=== PATIENT | female | born 1990 | race Caucasian/White ===

== ENCOUNTER → 2019-05-15 | Outpatient (CLI) | payer OTHER ==
--- NOTE | 2019-05-16 07:20 | US ---
EXAMINATION TYPE: Transabdominal DATE OF EXAM: 05/15/2019 4:25 PM COMPARISON: NONE CLINICAL HISTORY: Z36 Confirm Dates. ; vaginal spotting x 3 days EXAM PERFORMED: Transabdominal (TA) EXAM MEASUREMENTS: GESTATIONAL AGE / DATING Physician Established: (10 weeks/3 days) EDC: 12/08/2019 Dates by LMP: (10 weeks/3 days) EDC: 12/08/2019 Dates by First Scan: No previous Dates by Current Scan for: (10 weeks/1 day) EDC: 12/10/2019 MATERNAL ANATOMY Uterus: 18.8 x 7.0 x 6.5cm Right Ovary: 4.1 x 3.1 x 2.7cm, right ovarian cyst = 1.9 x 1.9 x 1.6cm Left Ovary: 4.3 x 3.4 x 2.7cm Post CDS / Adnexa: wnl Presence of free fluid: no Presence of corpus luteal cyst: not identified by peripheral ring of color flow, but may be in right ovary Presence of subchorionic bleed: no GESTATION / SURVEY CRL: 3.2cm (10 weeks/1 day) Yolk Sac (normal less than 6mm): larger yolk sac at 7.5mm Heart Rate: 157 bpm Rhythm: Normal IUP: Live, single IUP Date of LMP: 03/13/2019 Beta HcG (if available): NA IMPRESSION: Single, live intrauterine with a sonographic age of 10 weeks/1 day and estimated date of de livery of 12/10/2019, HR 157bpm. Of note the yolk sac is larger than expected measuring 7.5 mm (upper limits of normal 6 mm). Close follow-up is recommended.
== END | disposition home or self-care (01) ==
LOC: RADUSWWP 15:56
PROVIDERS: ATTEND Obstetrics & Gynecology
DX: Z36.89 Encounter for other specified antenatal screening (principal); Z3A.10 10 weeks gestation of pregnancy
CPT/HCPCS: 76801

== ENCOUNTER → 2019-11-06 | Outpatient (CLI) | payer OTHER ==
[2019-11-12 07:29] VITALS: BP 124/63; PULSE 103; RESP 16; TEMP 97.2
--- NOTE | 2019-11-13 09:32 | P.MSEPDOC ---
Presenting Problems - Arrival Data Date of Arrival on Unit: 11/06/19 Time of Arrival on Unit: 16:46 Mode of Transport: Ambulatory - Complaint OB-Reason for Admission/Chief Complaint: Rule Out SROM, Decreased Movement Medical History - Information : 2 Para: 1 Term: 1 : 0 Abortions: Spontaneous or Elective: 0 Number of Living Children: 1 - Gestational Age Gestational Age by PATRICIA (wks/days): 36 Weeks and 2 Days Review of Systems - Review of Systems Constitutional: No problems Breast: No problems ENT: No problems Cardiovascular: No problems Respiratory: No problems Gastrointestinal: No problems Genitourinary: No problems Musculoskeletal: No problems Neurological: No problems Skin: No problems Vital Signs - Temperature Temperature: 97.2 F - Pulse Brachial Pulse Rate: 103 Pulse Assessment Method: Automatic Cuff - Respirations Respiratory Rate: 16 Oxygen Delivery Method: Room Air - Blood Pressure Right Arm Blood Pressure: 124/63 Blood Pressure Mean: 83 Blood Pressure Source: Automatic Cuff Medical Screen Scoring (Pre) - Uterine Contractions Frequency: N/A Duration: N/A Intensity: N/A - Maternal Vital Signs Maternal Temperature: N/A Maternal Blood Pressure: N/A Signs of Preeclampsia: N/A Maternal Respirations: N/A - Maternal Trauma Maternal Trauma: N/A - Assessment - Baby A Baseline FHR: 120 Heart Rate - NICHD Category: Category I (Normal) = 0 NST: Reactive Position: N/A Station: N/A - Total Score - Baby A Total Score - Baby A: 0 - Total Score - Baby B Total Score - Baby B: 0 - Total Score - Baby C Total Score - Baby C: 0 - Level of Risk - Baby A Level of Risk - Baby A: Low (0-5) - Level of Risk - Baby B Level of Risk - Baby B: Low (0-5) - Level of Risk - Baby C Level of Risk - Baby C: Low (0-5) Physician Notification (Pre) - Physician Notified Physician Notified Date: 11/06/19 Physician Notified Time: 17:30 New Order Received: Yes (discharge with intstruction) - Notification Comment Comment: amnisure negative, not vanessa, pt states she is seeing movment. Disposition - Disposition OB Disposition: Triage, Discharge to home, Written follow up instructions reviewed Discharge Date: 11/06/19 Discharge Time: 17:35 I agree with the RN Medical Screening Exam: Yes Risk & Benefit of care provided described in d/c instruction: Yes Diagnosis: DECREASED MOVEMENTS, THIRD TRIMESTER, FETUS 1
== END | disposition home or self-care (01) ==
LOC: FBPOP 16:46
PROVIDERS: ATTEND Obstetrics & Gynecology
DX: Z53.9 Procedure and treatment not carried out, unspecified reason (principal)

== ENCOUNTER → 2019-11-30 | Outpatient (CLI) | payer OTHER | END | disposition home or self-care (01) | LOC: LABWHC1 13:44 | PROVIDERS: ATTEND Obstetrics & Gynecology | DX: Z11.59 Encounter for screening for other viral diseases (principal) ==

== ENCOUNTER 2019-12-04 06:19 | Inpatient (IN) | payer OTHER ==
[2019-11-30 15:37] VITALS: BMI 37.4
--- NOTE | 2019-12-01 12:32 | P.HPOB ---
History of Present Illness H&P Date: 12/01/19 Chief Complaint: Intrauterine at term: Prior section: Family planning Radha is a 29-year-old at 39 weeks gestation with prior section and request for same. Her course has been overall unremarkable and she is feeling well at this time. Risks/benefits/alternatives to a repeat C- section with tubal were discussed with the patient in detail and all questions were answered for her prior to proceeding to the operative room. Her pertinent labs did include A+ blood type, Rh and it was negative, rubella was immune, hepatitis B surface antigen/RPR/HIV were all negative. She did pass her Glucola screen. Group B strep was negative. Past Medical History Past Medical History: No Reported History, Thyroid Disorder History of Any Multi-Drug Resistant Organisms: None Reported Past Surgical History: Section Past Anesthesia/Blood Transfusion Reactions: No Reported Reaction Smoking Status: Former smoker - Past Family History Mother Family Medical History: No Reported History Medications and Allergies Home Medications Medication Instructions Recorded Confirmed Type Levothyroxine Sodium [Synthroid] 50 mcg PO DAILY 11/06/19 11/30/19 History Pnv,Calcium 72/Iron/Folic Acid 1 each PO DAILY 11/30/19 11/30/19 History [ Plus Tablet] Allergies Allergy/AdvReac Type Severity Reaction Status Date / Time No Known Allergies Allergy Verified 11/30/19 15:39 Exam Osteopathic Statement: *. No significant issues noted on an osteopathic structural exam other than those noted in the History and Physical/Consult. Intake and Output 11/30/19 12/01/19 12/01/19 22:59 06:59 14:59 Other: Weight 111.584 kg - OBG Physical Exam Breast: both: normal (no masses) Abdomen: bowel sounds normal, no diffuse tenderness, no bruit present, no guarding noted, no hepatomegaly, no splenomegaly, no mass Vulva: both: normal Vagina: normal moisture, no discharge Cervix: no lesion, no discharge Uterus: normal size, normal contour Adnexa: both: normal Anus/Rectum: normal perianal skin, no rectal mass, no hemorrhoids, heme negative
[2019-12-04] MEDS ORDERED: CITRIC ACID-SODIUM CITRATE 15 ML CUP PO ONE (06:21)
[2019-12-04] MEDS: LACTATED RINGERS 1,000 ML IV SCH ×3 (06:53→21:46)
[2019-12-04 06:59] LABS: Basophils % (A) 0 %; Eosinophils # (A) 0.2 k/uL (0-0.7); Eosinophils % (A) 2 %; HCT 34.9 % (34.0-46.0); HGB 11.2 gm/dL (11.4-16.0); Hypochromasia Moderate; Lymphocytes # (A) 2.6 k/uL (1.0-4.8); Lymphocytes % (A) 24 %; MCH 28.8 pg (25.0-35.0); MCHC 32.1 g/dL (31.0-37.0); MCV 89.8 fL (80.0-100.0); Monocytes # (A) 0.6 k/uL (0-1.0); Monocytes % (A) 6 %; Neutrophils # (A) 7.2 k/uL (1.3-7.7); Neutrophils % (A) 67 %; Platelet Count 313 k/uL (150-450); RBC 3.89 m/uL (3.80-5.40); WBC 10.9 k/uL (3.8-10.6)
[2019-12-04] MEDS ORDERED: NALBUPHINE 10 MG/ML (1 ML AMP) ONE (07:45)
[2019-12-04] MEDS ORDERED: KETOROLAC 30 MG/ML 1 ML VIAL ONE (07:45)
[2019-12-04] MEDS ORDERED: ePHEDrine SULFATE/0.9% NACL/PF 50 MG/5 ML SYRINGE IV ONE (07:45)
[2019-12-04] MEDS ORDERED: MORPHINE SULFATE (PF) 0.3 MG/0.3 ML SYR ONE (07:45)
[2019-12-04] MEDS ORDERED: ONDANSETRON 4 MG/2 ML VIAL ONE (07:45)
[2019-12-04] MEDS ORDERED: OXYTOCIN 10 UNIT/ML 1 ML VIAL ONE (07:45)
--- NOTE | 2019-12-04 08:25 | P.OP ---
Date of Procedure: 12/04/19 Preoperative Diagnosis: Intrauterine at term: Prior section: Family planning Postoperative Diagnosis: Same Procedure(s) Performed: Repeat low-transverse section Anesthesia: spinal Surgeon: Eldon Stock Asphalt Paving Supervisor #1: Humberto Triana Estimated Blood Loss (ml): 500 IV fluids (ml): 1,000 Urine output (ml): 200 Pathology: none sent Condition: stable Disposition: floor Operative Findings: Female scores of 9 and 9 at one and 5 minutes respectively weight was 6 lbs. 6 oz. Due to asynclitic presentation vacuum assist for delivery was performed Description of Procedure: Patient was taken to the operating suite where a spinal anesthetic was found be adequate. She is prepped and draped in the normal sterile fashion and placed in dorsal supine position with leftward tilt. Initially a Pfannenstiel skin incision was made and this incision was then carried through to the underlying layer of the fascia was second knife. Fascia was then nicked in the midline and this opening was extended laterally with Correa scissors. Superior and inferior aspect of this incision were then grasped tented up and bluntly and sharply dissected off the rectus muscles. Rectus muscles were then divided the midline and sharp dissection through the peritoneum was performed. This opening was then extended superiorly and inferiorly with good visualization of both bowel bladder. Bladder blade was then placed and the bladder flap identified. It was entered with Metzenbaum scissors carried across face the uterus and then bluntly dissected out of the operative field. Knife was then used to incise uterus. This opening was then fully developed with a hemostat and extended bluntly. Head then was noted and attempts to deliver the head were made. It was slightly asynclitic therefore vacuum was applied and with one gentle use of traction was able to deliver the head through the incision. Mouth nares were then bulb suctioned and then the anterior posterior shoulders were delivered with gentle downward upper traction followed by the remainder the baby. Umbilical cord was then clamped cut usual fashion an nursery personnel was present to assume care. Placenta was then delivered intact and Pitocin was added to the IV. Uterus was then exteriorized cleared of clots and debris and closed in 1 layer with 0 Vicryl suture. Once excellent hemostasis was obtained fallopian tubes were identified and a clip was placed 2 cm from uterine cornu on both the right and left tubes. Blood and debris was then suctioned from the posterior cul-de-sac and the uterus was reinserted into the abdomen. Peritoneal layer was then closed with 3-0 Vicryl suture. Fascial layer was closed with 0 Vicryl suture. One layer of 3-0 Vicryl was placed in deep subcuticular tissues to reapproximate skin and close the space. Skin was then closed with 3-0 Vicryl subcuticularly. Sponge, lap, needle counts were all correct 2. Patient was then taken to the recovery room in stable and satisfactory condition.
[2019-12-04] MEDS ORDERED: diphenhydrAMINE 50 MG/ML 1 ML VIAL IVP PRN ×2 (10:29)
[2019-12-04] MEDS ORDERED: diphenhydrAMINE 50 MG CAP PO PRN (10:29)
[2019-12-04] MEDS ORDERED: NALOXONE 0.4 MG/ML 1 ML VIAL IV PRN (10:29)
[2019-12-04] MEDS ORDERED: ACETAMINOPHEN TAB 325 MG TAB PO PRN (10:29)
[2019-12-04] MEDS ORDERED: ZOLPIDEM 5 MG TAB PO PRN (10:29)
[2019-12-04] MEDS ORDERED: diphenhydrAMINE 25 MG CAP PO PRN (10:29)
[2019-12-04] MEDS ORDERED: METOCLOPRAMIDE 5 MG/ML 2 ML VIAL IVP PRN (10:29)
[2019-12-04] MEDS ORDERED: SIMETHICONE 80 MG CHEWABLE PO PRN (10:29)
[2019-12-04] MEDS ORDERED: ONDANSETRON 4 MG/2 ML VIAL IVP PRN (10:29)
[2019-12-04] MEDS: KETOROLAC 30 MG/ML 1 ML VIAL IVP PRN ×2 (15:22→21:43)
[2019-12-04] MEDS: SENNOSIDES-DOCUSATE SODIUM 1 EACH TAB PO SCH (19:49)
[2019-12-05] MEDS: KETOROLAC 30 MG/ML 1 ML VIAL IVP PRN (03:57)
[2019-12-05] MEDS: LACTATED RINGERS 1,000 ML IV SCH (05:05)
[2019-12-05 06:11] LABS: Basophils % (A) 0 %; Eosinophils # (A) 0.2 k/uL (0-0.7); Eosinophils % (A) 3 %; HCT 28.7 % (34.0-46.0); Hypochromasia Marked; Lymphocytes % (A) 25 %; MCH 28.8 pg (25.0-35.0); MCHC 31.8 g/dL (31.0-37.0); MCV 90.7 fL (80.0-100.0); Mean Platelet Volume 8.3; Monocytes # (A) 0.4 k/uL (0-1.0); Monocytes % (A) 5 %; Neutrophils # (A) 5.1 k/uL (1.3-7.7); Neutrophils % (A) 64 %; Platelet Count 229 k/uL (150-450); RBC 3.17 m/uL (3.80-5.40); RDW 15.2 % (11.5-15.5); WBC 7.9 k/uL (3.8-10.6)
[2019-12-05 06:12] LABS: HGB 9.1 gm/dL (11.4-16.0)
--- NOTE | 2019-12-05 07:36 | P.PN ---
Progress Note - Text Progress Note Date: 12/05/19 29 yo female s/p . POD#1. Patient received intrathecal Duramorph. Frances ent was seen today, sitting up in bed no complaints, pain VAS score 0/10, no headache, no itching, no nausea and vomiting. Assessment and plan: Doing well in general no complications from anesthesia
[2019-12-05] MEDS: SENNOSIDES-DOCUSATE SODIUM 1 EACH TAB PO SCH ×2 (08:29→21:43)
--- NOTE | 2019-12-05 08:45 | P.PNOBGPC ---
Subjective - Subjective Principal diagnosis: Postop day 1 Interval history: Radha is doing very well postop day 1. She's ablating, voiding and tolerating her diet. She voices no complaints. Continue current care. Patient reports: Reports appetite normal, Reports voiding normally, Reports pain well controlled, Reports ambulating normally [place]: doing well Objective - Vital Signs Latest vital signs: Vital Signs Temp Pulse Resp BP Pulse Ox 12/05/19 04:00 98.3 F 85 18 85/51 95 12/05/19 00:00 98.2 F 77 18 100/60 96 12/04/19 20:00 98.1 F 70 18 108/68 99 12/04/19 16:00 99.0 F 83 18 113/47 95 12/04/19 12:00 97.5 F L 75 18 105/50 12/04/19 10:29 96.4 F L 80 16 101/52 12/04/19 09:59 80 18 98/54 12/04/19 09:29 81 18 102/53 98 12/04/19 09:14 82 18 97/61 98 12/04/19 08:59 82 18 103/51 97 Intake and Output 12/04/19 12/05/19 12/05/19 22:59 06:59 14:59 Intake Total 1800 Output Total 950 150 Balance -950 1650 Intake: Oral 1800 Output: Urine 950 150 Other: Voiding Method Indwelling Catheter # Voids 1 - Exam Lungs: bilateral: normal Chest: Normal S1, Normal S2 Extremities: Present: normal Abdomen: Present: normal appearance, soft. Absent: distention, tenderness Incision: Present: normal, dry, intact Uterus: Present: normal, firm - Labs Labs: Abnormal Lab Results - Last 24 Hours (Table) 12/05/19 Range/Units 05:32 RBC 3.17 L (3.80-5.40) m/uL Hgb 9.1 L D (11.4-16.0) gm/dL Hct 28.7 L (34.0-46.0) %
[2019-12-05] MEDS: IBUPROFEN 600 MG TAB PO PRN ×2 (13:21→21:42)
[2019-12-05] MEDS: HYDROcodone/APAP 5-325MG 1 EACH TAB PO PRN (16:21)
[2019-12-06] MEDS ORDERED: HYDROcodone/APAP 5-325MG 1 EACH TAB ONE
[2019-12-06] MEDS: IBUPROFEN 600 MG TAB PO PRN ×2 (05:51→13:18)
[2019-12-06] MEDS: HYDROcodone/APAP 5-325MG 1 EACH TAB PO PRN (07:17)
[2019-12-06 07:31] VITALS: BP 130/74; PULSE 82; RESP 18; TEMP 98.4
[2019-12-06] MEDS: SENNOSIDES-DOCUSATE SODIUM 1 EACH TAB PO SCH (09:28)
--- NOTE | 2019-12-06 09:28 | P.PNOBGPC ---
Subjective - Subjective Principal diagnosis: Postoperative to Interval history: Radha is doing very well postop day 2. She's angling and voiding and tolerating her diet. She voices no complaints. Her baby apparently has a murmur's that is being reevaluated. If the baby is discharged and she would like to go home today. Her vital signs are otherwise stable and she is afebrile. She has have some incisional tenderness only. On physical exam heart regular, lungs clear, extremities without pain. Abdomen soft positive bowel sounds are noted and her incision is otherwise clean dry and intact. Assessment postop day 2. Plan continue Current care with expectation for discharge when ba by is stable for discharge. Objective - Vital Signs Latest vital signs: Vital Signs Temp Pulse Resp BP Pulse Ox 12/06/19 07:30 98.4 F 82 18 130/74 98 12/06/19 00:00 97.8 F 90 16 105/52 96 12/05/19 16:00 97.8 F 97 18 119/53 98 Intake and Output 12/05/19 12/06/19 12/06/19 22:59 06:59 14:59 Other: # Voids 2 1 # Bowel Movements 1
--- NOTE | 2019-12-06 13:35 | P.DS ---
Providers Date of admission: 12/04/19 06:19 Expected date of discharge: 12/06/19 Attending physician: Eldon Stock Primary care physician: Stated None Hospital Course: Valente is doing very well now. Baby has been discharge therefore we'll discharge patient home with no changes since this morning's dictation. Vital signs again stable afebrile. Prescriptions for [place] and Motrin reported to her pharmacy. Discharge instructions were thoroughly reviewed and all questions were answered for her prior to her discharge. She is stable for discharge at this time. Patient Condition at Discharge: Good Plan - Discharge Summary Discharge Rx Participant: Yes New Discharge Prescriptions: New Ibuprofen [Motrin] 600 mg PO Q6HR PRN #30 tab PRN Reason: Pain HYDROcodone/APAP 5-325MG [[place] 5-325] 1 tab PO Q4HR PRN #30 tab PRN Reason: Pain No Action Levothyroxine Sodium [Synthroid] 50 mcg PO DAILY Pnv,Calcium 72/Iron/Folic Acid [ Plus Tablet] 1 each PO DAILY Discharge Medication List Levothyroxine Sodium [Synthroid] 50 mcg PO DAILY 11/06/19 [History] Pnv,Calcium 72/Iron/Folic Acid [ Plus Tablet] 1 each PO DAILY 11/30/19 [History] HYDROcodone/APAP 5-325MG [[place] 5-325] 1 tab PO Q4HR PRN #30 tab 12/06/19 [Rx] Ibuprofen [Motrin] 600 mg PO Q6HR PRN #30 tab 12/06/19 [Rx] Follow up Appointment(s)/Referral(s): Eldon Stock DO [Doctor of Osteopathic Medicine] - 1 Week Activity/Diet/Wound Care/Special Instructions: No heavy lifting, limit stairs and driving, and pelvic rest. If any high temperatures, heavy bleeding, or severe pain call my office Discharge Disposition: HOME SELF-CARE
[2019-12-06] MEDS ORDERED: buPROPion 100 MG TAB PO SCH (21:00)
== END 2019-12-06 14:15 | disposition home or self-care (01) | DRG 788 ==
LOC: 4FBP 06:19
PROVIDERS: ADMIT Obstetrics & Gynecology; ATTEND Obstetrics & Gynecology
PROC: 10D00Z1 Extraction of Products of Conception, Low, Open Approach (ICD-10-PCS; principal; 2019-12-04 08:00)
DX: O34.211 Maternal care for low transverse scar from previous cesarean delivery (principal); O99.284 Endocrine, nutritional and metabolic diseases complicating childbirth; E07.9 Disorder of thyroid, unspecified; Z37.0 Single live birth; Z3A.39 39 weeks gestation of pregnancy; Z79.890 Hormone replacement therapy; Z87.891 Personal history of nicotine dependence; Z86.59 Personal history of other mental and behavioral disorders
CPT/HCPCS: 85025; 86850; 86900; 86901